=== PATIENT | female | born 1985 | race Caucasian/White ===

== ENCOUNTER → 2016-03-02 | Outpatient (CLI) | payer OTHER ==
[~2016-03-02] MED LIST: ACET50TA PO; MOTR200T40 PO
--- NOTE | 2016-03-02 18:58 | REP ---
OBSTETRIC SONOGRAPHY: HISTORY: growth study. Amniotic fluid assessment. FINDINGS: Scanning through the gravid uterus demonstrates a viable single intrauterine gestation in a cephalic lie. motion is observed and heart rate is recorded at 128 beats per minute. A left lateral placental is seen without evidence of previa. Amniotic fluid is subjectively normal. RAYO is normal at 9.7 cm. The SD ratio in the umbilical cord artery by Doppler is slightly elevated at 3.72 (2.00 to 3.00). The following additional anatomic structures are identified and felt to be sonographically unremarkable: cranium, four chamber heart with left ventricular outflow tract view, diaphragm, left sided stomach, three vessel cord, kidneys, and bladder. BPD 8.6 cm = 34 weeks 5 days Head circumference 30.6 cm = 34 weeks 0 days Abdominal circumference 31.0 cm = 34 weeks 6 days Femur length 7.0 cm = 36 weeks 0 days Humeral length 6.2 cm = 36 weeks 0 days HC/AC ratio normal 0.99. Cephalic index is normal 0.80. Estimated weight is 2592 grams 5 pound 11 ounces 60th percentile for 34 weeks 3 days. IMPRESSION: Viable single intrauterine gestation at 34 weeks 5 days by today's composite sonographic criteria. Expected gestational age estimate based on prior sonography is 34 weeks 3 days ARCHANA by prior sonography 04/10/2016. SD ratio in the umbilical cord artery by Doppler slightly elevated at 3.72. Signed by Pool Willis MD 03/02/2016 07:21 P
== END ==
LOC: M SMT 09:57
PROVIDERS: ATTEND Advanced Practice Midwife
DX: R21 Rash and other nonspecific skin eruption (principal)

== ENCOUNTER → 2016-03-10 | Outpatient (CLI) | payer OTHER ==
[2016-03-10 18:43] LABS: MEAN CORPUSCULAR HEMOGLOBIN 29.3 pg (27.0-33.0); MEAN CORPUSCULAR HGB CONC 33.3 g/dl (32.0-36.5); RED CELL DISTRIBUTION WIDTH 13.9 % (11.5-14.5); WHITE BLOOD COUNT 9.3 K/mm3 (4.0-10.0)
[2016-03-10 19:18] LABS: ALT/SGPT 17 U/L (12-78); AST/SGOT 16 U/L (15-37); BILIRUBIN,TOTAL 0.3 MG/DL (0.2-1.0); CREATININE FOR GFR 0.66 MG/DL (0.55-1.02); GLOMERULAR FILTRATION RATE > 60.0 (>60); URIC ACID 4.5 MG/DL (2.6-6.0)
== END ==
LOC: M SMT 14:39
PROVIDERS: ATTEND Advanced Practice Midwife
DX: O26.613 Liver and biliary tract disorders in pregnancy, third trimester (principal)

== ENCOUNTER 2016-03-23 11:20 | Inpatient (IN) | payer OTHER ==
[~2016-03-23] VITALS: Ht 162.6 cm; Wt 63.0 kg
[2016-03-23] VITALS (29 sets, daily range): BP systolic 108–142; BP diastolic 52–85
[~2016-03-23 11:20] MED LIST changes: -MOTR200T40 PO; +MOTR200T44 PO
[2016-03-23] MEDS ORDERED: LR 1,000 ML IV SCH (11:54)
[2016-03-23] MEDS ORDERED: OXYTOCIN DRIP 30 UNITS in APPROPRIATE DILUENT 1 EA IV SCH ×2 (12:00→18:00)
[2016-03-23] MEDS ORDERED: PRENTAB9 PO (12:22)
--- NOTE | 2016-03-23 12:23 | HPE ---
DATE OF ADMISSION: 03/23/2016 Cielo is a 30-year-old, 2, para 1-0-0-1, at 37-3/7 weeks gestation with an estimated date of confinement (EDC) of 04/10/2016 based on last normal menstrual period and confirmed by first trimester ultrasound. She presents to labor and delivery today for induction of labor per consult with Dr. Zaida Sauceda due to diagnosis of cholestasis at 34 weeks gestation. She does report an occasional contraction. Denies leakage of fluid and the fetus has been active. care was initiated at [facility] in the first trimester. course complicated by a history of gestational hypertension in prior and recent diagnosis of cholestasis. OBSTETRICAL HISTORY: January 2014, at 38-6/7 weeks gestation, she had induction of labor due to gestational hypertension and had a vaginal delivery for a 7 pound 12 ounce female. OBSTETRICAL (OB) LABS: Blood type AB+, antibody screen negative. Pap was normal. Rubella immune. VDRL nonreactive. Urine culture no growth. Hepatitis B surface antigen negative. HIV negative. Hepatitis C negative. Gonorrhea and chlamydia negative. She had second trimester serum screenings. Quad screen was performed and negative result. Gestational diabetic screening 121. Her GBS is negative. On 02/26/2016, after complaint of abdominal itching and rash, liver enzymes and bile acids were performed. AST was elevated at 85, ALT 106. Her bile acids were 21.1. Per consult with Dr. Ronaldo Montano, diagnosis of cholestasis was made and ursodiol was started. Repeat labs on 03/10/2016 showed her AST returned back to normal at 16, ALT 17, LDH 156, and bile acids 15.2. PAST MEDICAL HISTORY: Gestational hypertension, seasonal allergies, abnormal Pap smear, and childhood varicella. SURGERIES: None. Family history of heart disease. SOCIAL HISTORY: The patient is . Her is at bedside and supportive. She is a nonsmoker. Denies alcohol and drug use. Denies any history of any sexually transmitted infections and denies history of abuse physical, sexual and emotional. ALLERGIES: SEASONAL. NO KNOWN DRUG ALLERGIES. CURRENT MEDICATIONS: Include: - ursodiol 300 mg - Protonix 20 - vitamin OBJECTIVE: Temperature 97.4, pulse 98, respirations 18, blood pressure 134/61. heart rate 130 with moderate variability, positive accelerations, no decelerations noted. She has an occasional contraction. Abdomen is gravid, cephalic presentation. Estimated weight 6-1/2 pounds. Sterile vaginal exam: 3 cm dilated, 80% effaced, -2 station. No bloody show. ASSESSMENT: Intrauterine at 37-3/7 weeks gestation, heart rate category 1, cholestasis. PLAN: Admit patient to labor and delivery. Out of bed ad renee. Start clear liquid diet. Start IV Pitocin for labor induction. I did review the risks and benefits to induction of labor with the patient, including increased risk for section, failed induction of intolerance to labor and risks associated with expectant management, worsening status with cholestasis. All the patient and her 's questions have been answered and she does desire to proceed with induction. I do anticipate labor and spontaneous vaginal delivery.
[2016-03-23] MEDS ORDERED: TUMS500C PO (12:24)
[2016-03-23 13:11] LABS: MEAN CORPUSCULAR HEMOGLOBIN 30.1 pg (27.0-33.0); MEAN CORPUSCULAR HGB CONC 33.7 g/dl (32.0-36.5); MEAN CORPUSCULAR VOLUME 89.2 fl (80.0-96.0); RED CELL DISTRIBUTION WIDTH 13.9 % (11.5-14.5); WHITE BLOOD COUNT 6.7 K/mm3 (4.0-10.0)
[2016-03-23] MEDS ORDERED: FENTANYL 2MCG/ML ROPIVACAINE 0.2% NACL 250 ML CADD As Ordered ONE (15:43)
[2016-03-23] MEDS ORDERED: EPIDURAL COMMENT XX SCH (16:45)
[2016-03-23] MEDS ORDERED: REFRIGERATOR IV KEYS XX PRN (16:45)
[2016-03-23] MEDS ORDERED: diphenhydrAMINE INJ 50MG/ML VIAL (J1200) IV PRN (16:45)
[2016-03-23] MEDS ORDERED: NALOXONE INJ 0.4 MG/1 ML VIAL (J2310) IV PRN (16:45)
[2016-03-23] MEDS ORDERED: ONDANSETRON 4MG/2ML VIAL (J2405) IV PRN (16:45)
[2016-03-23] MEDS ORDERED: ePHEDrine SULFATE 25 MG/5 ML(5MG/ML) SYRINGE IV PRN (16:45)
[2016-03-23] MEDS ORDERED: LACTATED RINGER'S 1000 ML IV PRN (16:45)
[2016-03-23] MEDS ORDERED: EPIDURAL/PCA KEYS XX PRN (16:45)
[2016-03-23] MEDS ORDERED: FENTANYL/ROPIVACAINE/NACL CADD 250 ML EPIDURAL SCH (16:45)
[2016-03-23] MEDS ORDERED: MEASLES,MUMPS,RUBELLA VACCINE INJ (MMR-II) (90707) SC SCH (18:00)
[2016-03-23] MEDS ORDERED: RHOGAM 300 MCG (1500 IU) INJ (J2790) IM SCH (18:00)
[2016-03-23] MEDS ORDERED: DIBUCAINE 1% OINTMENT 30GM TOP PRN (18:00)
[2016-03-23] MEDS ORDERED: LIDOCAINE 1% MDV INJ 50 ML VIAL INFIL ONE (18:00)
[2016-03-23] MEDS ORDERED: DOCUSATE SODIUM 100 MG CAP PO PRN (18:00)
[2016-03-23] MEDS ORDERED: METHYLERGONOVINE MALEATE 0.2 MG TAB PO PRN (18:00)
--- NOTE | 2016-03-23 18:18 | DN ---
DATE: 03/23/2016 DELIVERY NOTE: Cielo is a 30-year-old 2, para 2-0-0-2 now, who was admitted to labor and delivery for induction of labor due to cholestasis. Intravenous (IV) Pitocin was started and labor ensued. She did utilize an epidural for her labor coping. She had assisted rupture of membranes for a small amount of clear odorless fluid at 1729, after being fully dilated at 1722. She pushed to a normal spontaneous vaginal delivery of a live female in occiput anterior (OA) position with restitution to right occiput transverse (ROT) position at 17 34, with a right nuchal hand. The shoulders delivered with gentle guidance and the corpus immediately followed. The was placed on the maternal abdomen crying and active. Her mouth and nares were bulb suctioned. The cord was clamped after pulsations ceased and cut by the father of the baby. A spontaneous expulsion with an intact placenta and a three-vessel cord by Mendoza mechanism was at 1738. Uterine hemostasis achieved with IV Pitocin rapid infusion and uterine fundal massage. Estimated blood loss 200 mL. Perineum and vagina were inspected and noted to have a small perineal first-degree laceration. The laceration was infiltrated with lidocaine 1% and repaired with 3-0 Rapide in the usual fashion. The female weight is pending and scores are nine and nine. Mom plans to breastfeed her daughter and the family have named their daughter Ketty. At the close of delivery, lap counts, instrument counts and needle counts were correct and verified.
[2016-03-23] MEDS: IBUPROFEN 800 MG TAB PO PRN (20:22)
[2016-03-24] MEDS ORDERED: LIDOCAINE 1% MDV INJ 50 ML VIAL As Ordered ONE (06:15)
[2016-03-24] MEDS: ACETAMINOPHEN 500 MG TAB PO PRN ×2 (06:31→18:46)
[2016-03-24 06:33] VITALS: BP 116/53
[2016-03-24] MEDS: PRENATAL VITAMIN TAB PO SCH (08:16)
[2016-03-24 10:00] VITALS: BP 110/55
[2016-03-24 14:00] VITALS: BP 134/61
[2016-03-24 18:00] VITALS: BP 110/55
[2016-03-24] MEDS: IBUPROFEN 800 MG TAB PO PRN (21:49)
[2016-03-25 05:57] VITALS: BP 100/51
[2016-03-25] MEDS ORDERED: IBUP-1114 PO (07:19)
[2016-03-25] MEDS ORDERED: ACET50TA PO (07:19)
[2016-03-25] MEDS: PRENATAL VITAMIN TAB PO SCH (09:05)
== END 2016-03-25 10:00 | disposition home or self-care (01) | DRG 560 ==
LOC: M LDI 11:20 → M OBS 19:27
PROVIDERS: ADMIT Advanced Practice Midwife; ATTEND Advanced Practice Midwife
PROC: 10E0XZZ Delivery of Products of Conception, External Approach (ICD-10-PCS; principal; 2016-03-23)
PROC: 10907ZC Drainage of Amniotic Fluid, Therapeutic from Products of Conception, Via Natural or Artificial Opening (ICD-10-PCS; 2016-03-23)
PROC: 0HQ9XZZ Repair Perineum Skin, External Approach (ICD-10-PCS; 2016-03-23)
PROC: 3E033VJ Introduction of Other Hormone into Peripheral Vein, Percutaneous Approach (ICD-10-PCS; 2016-03-23)
DX: O26.62 Liver and biliary tract disorders in childbirth (principal); K83.1 Obstruction of bile duct; Z3A.37 37 weeks gestation of pregnancy; O70.0 First degree perineal laceration during delivery; Z37.0 Single live birth

== ENCOUNTER → 2020-04-23 | Outpatient (REF) | payer OTHER ==
[~2020-04-23] MED LIST changes: -ACET50TA PO; +IBUP-1114 PO; +MAPA500T2 PO; +PRENTAB9 PO; +TUMS500C PO
[2020-04-23 14:06] LABS: HEMATOCRIT 37.3 % (36.0-47.0); HEMOGLOBIN 12.6 g/dl (12.0-15.5); MEAN CORPUSCULAR HEMOGLOBIN 31.4 pg (27.0-33.0); MEAN CORPUSCULAR HGB CONC 33.8 g/dl (32.0-36.5); PLATELET COUNT, AUTOMATED 250 10^3/uL (150-450); RED BLOOD COUNT 4.01 10^6/uL (4.00-5.40); WHITE BLOOD COUNT 7.9 10^3/uL (4.0-10.0)
[2020-04-23 14:33] LABS: ALT/SGPT 17 U/L (12-78); BILIRUBIN,TOTAL 0.3 MG/DL (0.2-1.0); CREATININE FOR GFR 0.56 MG/DL (0.55-1.30); GLOMERULAR FILTRATION RATE > 60.0 (>60); LDH LACTATE DEHYDROGENASE 120 U/L (84-246); URIC ACID 3.6 MG/DL (2.6-6.0)
[2020-04-23 14:33] LABS: CREATININE,RANDOM URINE 96.3 MG/DL; TOTAL PROTEIN,RANDOM URINE 5.2 MG/DL (0.0-12.0)
[2020-04-23 15:23] LABS: HEPATITIS C VIRUS ABY INDEX < 0.0 INDEX (<0.8); HIV 1&2 SCREEN CENTAUR NEGATIVE (NEGATIVE)
== END ==
LOC: M PLALAB 10:37
PROVIDERS: ATTEND Advanced Practice Midwife
DX: Z34.91 Encounter for supervision of normal pregnancy, unspecified, first trimester (principal); Z3A.00 Weeks of gestation of pregnancy not specified

== ENCOUNTER → 2020-05-20 | Outpatient (CLI) | payer OTHER | LOC: M PLALAB 10:37 | PROVIDERS: ATTEND Advanced Practice Midwife | DX: Z13.79 Encounter for other screening for genetic and chromosomal anomalies (principal) ==

== ENCOUNTER → 2020-06-10 | Outpatient (CLI) | payer OTHER ==
--- NOTE | 2020-06-10 10:30 | REP ---
INDICATION: ANATOMY. COMPARISON: None. TECHNIQUE: Real-time sonographic evaluation of the gravid uterus performed. FINDINGS: Estimated gestational age is21 weeks 0 days, EDC 10/21/2020. Today's measurements indicate appropriate growth. Presentation: Transverse Placenta is posterior, grade 1, without evidence of placenta previa. heart rate is recorded at 141 beats per minute. Amniotic fluid is subjectively normal. Closed cervical length is measured at 4.1 cm. Biometry chart: BPD: 49 mm, 20 weeks 6 days, 46th percentile. HC: 188 mm, 21 weeks 1 days, 54th percentile AC: 164 mm, 21 weeks 3 days, 60th percentile Femur length: 35 mm, 20 weeks 6 days, is 47th percentile HC to AC ratio: 1.15, normal range 1.05-1.24. Estimated weight: 404g, 54th percentile. anatomy: Cranium: Grossly normal Lateral Ventricles/Choroid Plexus: Grossly normal Posterior Fossa/Cerebellum: Grossly normal Nose/lips/profile: Grossly normal Four chamber heart: Grossly normal Right ventricular outflow tract: Grossly normal Left ventricular outflow tract: Grossly normal Left-sided stomach: Grossly normal Kidneys: Grossly normal Bladder: Grossly normal Cord Insertion: Grossly normal 3 vessel cord: Grossly normal Spine: Grossly normal IMPRESSION: Viable single intrauterine gestation as above. <Electronically signed by Carlos Galicia > 06/10/20 1024
== END ==
LOC: M WHC 09:27
PROVIDERS: ATTEND Advanced Practice Midwife
DX: Z36.3 Encounter for antenatal screening for malformations (principal); Z3A.21 21 weeks gestation of pregnancy

== ENCOUNTER → 2020-07-15 | Outpatient (REF) | payer OTHER ==
[2020-07-15 13:36] LABS: HEMATOCRIT 35.4 % (36.0-47.0); HEMOGLOBIN 11.5 g/dl (12.0-15.5); MEAN CORPUSCULAR HEMOGLOBIN 31.8 pg (27.0-33.0); MEAN CORPUSCULAR HGB CONC 32.5 g/dl (32.0-36.5); MEAN CORPUSCULAR VOLUME 97.8 fl (80.0-96.0); PLATELET COUNT, AUTOMATED 221 10^3/uL (150-450); RED BLOOD COUNT 3.62 10^6/uL (4.00-5.40)
== END ==
LOC: M PLALAB 09:46
PROVIDERS: ATTEND Advanced Practice Midwife
DX: Z36.89 Encounter for other specified antenatal screening (principal)

== ENCOUNTER → 2020-09-22 | Outpatient (CLI) | payer OTHER ==
[2020-09-22 16:10] LABS: HEMATOCRIT 33.1 % (36.0-47.0); HEMOGLOBIN 10.7 g/dl (12.0-15.5); MEAN CORPUSCULAR HEMOGLOBIN 30.3 pg (27.0-33.0); MEAN CORPUSCULAR HGB CONC 32.3 g/dl (32.0-36.5); MEAN CORPUSCULAR VOLUME 93.8 fl (80.0-96.0); PLATELET COUNT, AUTOMATED 207 10^3/uL (150-450); RED BLOOD COUNT 3.53 10^6/uL (4.00-5.40); WHITE BLOOD COUNT 9.3 10^3/uL (4.0-10.0)
[2020-09-22 16:39] LABS: BILIRUBIN,DIRECT 0.1 MG/DL (0.0-0.2); BILIRUBIN,TOTAL 0.3 MG/DL (0.2-1.0); TOTAL PROTEIN 6.4 GM/DL (6.4-8.2)
== END ==
LOC: M PLALAB 11:35
PROVIDERS: ATTEND Advanced Practice Midwife
DX: Z34.93 Encounter for supervision of normal pregnancy, unspecified, third trimester (principal); L29.9 Pruritus, unspecified; Z3A.00 Weeks of gestation of pregnancy not specified

== ENCOUNTER 2020-10-18 01:09 | Inpatient (IN) | payer OTHER ==
[~2020-10-18] VITALS: Ht 162.6 cm; Wt 73.8 kg
[2020-10-18] VITALS (14 sets, daily range): BP systolic 107–136; BP diastolic 49–69
[2020-10-18] MEDS ORDERED: LACTATED RINGER'S 1000 ML IV STA (01:48)
[2020-10-18] MEDS ORDERED: METHYLERGONOVINE MALEATE 0.2 MG/ML VIAL (J2210) IM PRN (01:50)
[2020-10-18] MEDS ORDERED: OXYTOCIN DRIP 30 UNITS in IV 1 EA IV PRN (01:50)
[2020-10-18] MEDS ORDERED: LR 1,000 ML IV SCH (01:50)
[2020-10-18] MEDS ORDERED: LIDOCAINE 1% MDV 20ML VIAL INFIL PRN (01:50)
--- NOTE | 2020-10-18 02:08 | HPEPDOC ---
Obstetrical History & Physical General Date of Admission Oct 18, 2020 at 01:47 History of Present Illness Chief Complaint: Contractions, term, LOF, term Age: 34 : 3 Term: 2 Pre-term: 0 Abortions: 0 Livin Care Care: Good Care Dating Final EDC by: LMP EGA at Admission: 39 (+4) Antepartum Course Pre- weight (lbs.): 121 Admission Weight (lbs.): 160 Past Medical History Past Obstetrical History #1: Past Obstetrical History: Primgravida (2014) Type of Delivery: Spontaneous Vaginal Del. Sex of : Female (7#12) Complications: Yes (GHTN end of ) Past Obstetrical History #2: Past Obstetrical History: Multigravida (2017) Type of Delivery: Spontaneous Vaginal Del. 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 Past Medical History Surgical History: Denies/None Family History Significant Family History: Diabetes Social History Marital Status: Family situation: Spouse/partner home Psychosocial History: No pertinent psych hx * Smoker: non-smoker Alcohol: Denies Drugs: denies Imunizations Tdap status: current Allergies Coded Allergies: No Known Drug Allergies (Verified Allergy, Unknown, 10/18/20) Medications Scheduled No.137/Iron/Folic Acd ( Vitamin Tablet) 1 Tab Tab, 1 TAB PO DAILY Scheduled PRN Acetaminophen (Mapap) 500 Mg Tab, 1,000 MG PO Q6HP PRN for MILD PAIN (PS 1-4) Calcium Carbonate (Tums) 500 Mg Chw, 500 MG PO Q2HP PRN for HEARTBURN Ibuprofen (Ibuprofen) 400 Mg Tab, 800 MG PO Q8HP PRN for MODERATE PAIN (PS 5-7) Physical Examination Physical Examination GENERAL: Alert and oriented times three. BREAST: . ABDOMEN: Gravid and non-tender to touch. FETUS: Is vertex (VTX) by sterile vaginal examination (SVE), fetus is vertex (VTX) by Randall. EFW 8# HEART RATE: Regular rate and rhythm. LUNGS: Clear to auscultation (CTA). EXTREMITIES: No edema. No clonus. Deep tendon reflexes (DTRs) + 2 Laboratory Data 24H LABS Laboratory Tests 2 10/18/20 01:53: Serology Scanned Report Hepatitis B Testing Pertinent Laboratoy Data Blood Type: AB+ RBC Antibody Screen: Negative HIV: Negative Hepatitis B: Negative Hepatitis C: Negative Rapid Plasma Reagin: Nonreactive Rubella: Immune Chlamydia/Gonorrhea: Negative Group B Streptococcus: Negative Glucose Tolerance Test: 101 Diag/Inter Therapy Panorama low risk male Anatomy Ultrasound Ultrasound Date: Jun 10, 2020 Placenta Location: Posterior Normal Anatomy: Yes Placenta Previa: No Estimated Weight (grams): 404 (54%) Steroid Therapy Steroid Therapy: No Vaginal Examination Dilation: 3 cm Effacement: 100% Station: -1 Cervical Consistency: Soft Cervical Position: Middle Presentation: Cephalic presentation Assessment Heart Rate (FHR): 145 Variability: Moderate Accelerations: Positive Decelerations: None Tocometer Contractions: Yes Frequency: irregular, every 2-5 min. Duration: less than 60 seconds Strength: palpated as moderate Assessment/Plan Assessment Cielo is a 34-year-old (G) 3 para (P)2-0-0-2 at 39+4 weeks by first trimester ultrasound. Presents to Labor and Delivery (L&D) with reports of spontaneous loss of clear fluid 2300 followed by onset UC. Reports good movement. 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 Diet: clear liquids. Group B Streptococcus (GBS) negative. Labs and intravenous (IV) per unit protocol. Counseled on Pitocin and induction of labor (IOL). Lactated Ringers (LR): Bolus 500 mL, then at 125 mL/hr. Plans epidural Anticipate normal spontaneous delivery (). C-S as appropriate. Denise Henderson CNM Oct 18, 2020 02:08
[2020-10-18 02:09] LABS: HEMATOCRIT 30.7 % (36.0-47.0); HEMOGLOBIN 10.4 g/dl (12.0-15.5); MEAN CORPUSCULAR HEMOGLOBIN 30.1 pg (27.0-33.0); MEAN CORPUSCULAR HGB CONC 33.9 g/dl (32.0-36.5); MEAN CORPUSCULAR VOLUME 88.7 fl (80.0-96.0); PLATELET COUNT, AUTOMATED 213 10^3/uL (150-450); RED BLOOD COUNT 3.46 10^6/uL (4.00-5.40); WHITE BLOOD COUNT 10.2 10^3/uL (4.0-10.0)
[2020-10-18] MEDS ORDERED: FENTANYL 2MCG/ML ROPIVACAINE 0.2% IN 0.9% NACL 100ML IVBAG As Ordered ONE (03:00)
[2020-10-18] MEDS ORDERED: OXYTOCIN 30 UNITS IN 0.9% NaCl 500ML IV BAG (J2590) As Ordered ONE (03:38)
[2020-10-18] MEDS ORDERED: FENTANYL/ROPIVACAINE/NACL BAG 100 ML EPIDURAL SCH (03:50)
[2020-10-18] MEDS ORDERED: ONDANSETRON 4MG/2ML VIAL IV PRN (03:50)
[2020-10-18] MEDS ORDERED: REFRIGERATOR IV KEYS XX PRN (03:50)
[2020-10-18] MEDS ORDERED: NALOXONE INJ 0.4MG/1ML VIAL (J2310 PER 1MG) IV PRN (03:50)
[2020-10-18] MEDS ORDERED: EPIDURAL COMMENT XX SCH (03:50)
[2020-10-18] MEDS ORDERED: EPIDURAL/PCA KEYS XX PRN (03:50)
[2020-10-18] MEDS ORDERED: LACTATED RINGER'S 1000 ML IV PRN (03:50)
[2020-10-18] MEDS ORDERED: diphenhydrAMINE 50MG/ML VIAL (J1200) IV PRN (03:50)
[2020-10-18] MEDS ORDERED: ePHEDrine SULFATE 25 MG/5 ML(5MG/ML) SYRINGE IV PRN (03:50)
[2020-10-18] MEDS ORDERED: MOM 30ML SUSPENSION UDC PO PRN (04:35)
[2020-10-18] MEDS ORDERED: DOCUSATE SODIUM 100MG CAPSULE PO PRN (04:35)
[2020-10-18] MEDS ORDERED: MEASLES,MUMPS,RUBELLA VACCINE INJ (MMR-II) (90707) SC SCH (04:35)
[2020-10-18] MEDS ORDERED: ACETAMINOPHEN TAB 650MG DOSE (2X325MG) PO PRN (04:35)
[2020-10-18] MEDS ORDERED: METHYLERGONOVINE MALEATE 0.2 MG TAB PO PRN (04:35)
[2020-10-18] MEDS ORDERED: OXYTOCIN DRIP 30 UNITS in IV 1 EA IV SCH (04:35)
[2020-10-18] MEDS ORDERED: DIBUCAINE 1% OINTMENT 30GM TOP PRN (04:35)
[2020-10-18] MEDS ORDERED: RHOGAM 300 MCG (1500 IU) INJ (J2790) IM SCH (04:35)
[2020-10-18] MEDS ORDERED: IBUPROFEN 600MG TAB PO PRN (04:35)
--- NOTE | 2020-10-18 04:44 | DNPDOC ---
[facility] [place] DATE OF DELIVERY: 10/18/2020 PREDELIVERY DIAGNOSIS: 39+4/7 weeks' gestation and labor. POST DELIVERY DIAGNOSIS: Delivered. PROCEDURE: Spontaneous vaginal delivery PROVIDER: Denise Henderson CNM ANESTHESIA: Epidural ESTIMATED BLOOD LOSS: 200 mL. FINDINGS: 7 pound 15 ounce, 3600gm male infant, Score 8/9, no nuchal cord; true knot in cord. DELIVERY SUMMARY: Patient is a 34-year-old 3 now para 3-0-0-3 who was admitted to labor and delivery for active labor. She progressed under her own ospina, utilizing an epidural for labor coping making rapid progress. Fully dilated 0336. Pushed with encouragement. Head delivered NASREEN 0405, restituted to ROT. Slow maternal pushing efforts. Viable male delivered 0407, shoulders delivered with ease. Spontaneous respirations, transitioned on maternal abdomen with lusty cry. Cord gas obtained. Cord doubly clamped and cut once pulsations ceased. Apgars 8/9. Placenta junior, intact with 3v cord and true knot in cord @ 0417. Fundus firmed with massage and IV bolus premixed pitocin 30mg, bleeding controlled. 1st degree perineal laceration repaired with 3-0 vicryl rapide. Sponge, sharp and instrument count correct. Denise Henderson CNM Oct 18, 2020 04:44
[2020-10-18] MEDS: PRENATAL VITAMINS CHEWABLE TABLET PO SCH (07:31)
[2020-10-18] MEDS: IBUPROFEN 800 MG TAB PO PRN ×2 (07:31→16:41)
[2020-10-18] MEDS: ACETAMINOPHEN 500 MG TAB PO PRN ×2 (11:26→19:12)
[2020-10-19] MEDS: IBUPROFEN 800 MG TAB PO PRN (03:40)
[2020-10-19 05:44] VITALS: BP 124/60
[2020-10-19] MEDS: ACETAMINOPHEN 500 MG TAB PO PRN (06:55)
[2020-10-19] MEDS: PRENATAL VITAMINS CHEWABLE TABLET PO SCH (08:21)
--- NOTE | 2020-10-19 11:27 | IPNPDOC ---
Progress Note Date of Service: Oct 19, 2020 Day#: 1 Progress Note SUBJECT: Status post . She has been ambulating, voiding spontaneously with out issue and tolerating regular diet. Lochia decreasing/minimal. Pain is well- controlled. Denies headache, visual changes, right upper quadrant pain, shortness breath or chest pain. OBJECTIVE: VITAL SIGNS: Within normal limits, afebrile. Alert and oriented times three. Abdomen: Fundus firm at U-2. Soft, NTTP. ASSESSMENT: Status post uncomplicated spontaneous vaginal delivery. Vitals within normal limits, afebrile, hemodynamically stable with no evidence of infection. PLAN: Discharge to home today. Tylenol and Motrin for pain. Routine instructions/precautions reviewed. Routine PP visit in 6 weeks in clinic. VS, I&O, 24H, Fishbone Vital Signs/I&O Vital Signs Date Time Temp Pulse Resp B/P (MAP) Pulse Ox O2 Delivery O2 Flow Rate FiO2 10/19/20 05:44 98.4 72 16 124/60 (81) 10/18/20 18:04 100 Room Air BREEZY CEE DO Oct 19, 2020 11:27
[2020-10-19 17:52] VITALS: BP 132/68
== END 2020-10-19 20:20 | disposition home or self-care (01) | DRG 807 ==
LOC: M LDO 01:09 → M LDI 01:47 → M OBS 15:48
PROVIDERS: ADMIT Advanced Practice Midwife; ATTEND Advanced Practice Midwife
PROC: 10E0XZZ Delivery of Products of Conception, External Approach (ICD-10-PCS; principal; 2020-10-18)
PROC: 0HQ9XZZ Repair Perineum Skin, External Approach (ICD-10-PCS; 2020-10-18)
DX: O70.0 First degree perineal laceration during delivery (principal); Z37.0 Single live birth; Z3A.39 39 weeks gestation of pregnancy

== ENCOUNTER → 2021-06-02 | Outpatient (REF) | payer OTHER | LOC: M SFHCDERM 14:24 | PROVIDERS: ATTEND Dermatology | DX: L90.5 Scar conditions and fibrosis of skin (principal) ==

== ENCOUNTER → 2021-11-26 | Outpatient (REF) | payer OTHER | LOC: M PLALAB 13:56 | PROVIDERS: ATTEND Nurse Practitioner Family | DX: Z12.4 Encounter for screening for malignant neoplasm of cervix (principal) | CPT/HCPCS: 87624; G0123 ==

== ENCOUNTER → 2022-06-18 | Outpatient (REF) | payer OTHER ==
[2022-06-18 18:10] LABS: BASO % 0.6 % (0.0-1.0); EOS # 0.1 10^3/uL (0.0-0.5); EOS % 1.3 % (0.0-3.0); HEMATOCRIT 41.5 % (36.0-47.0); LYMPH # 2.1 10^3/uL (1.5-5.0); LYMPH % 43.6 % (24.0-44.0); MEAN CORPUSCULAR HEMOGLOBIN 32.2 pg (27.0-33.0); MEAN CORPUSCULAR HGB CONC 33.7 g/dl (32.0-36.5); MEAN CORPUSCULAR VOLUME 95.4 fl (80.0-96.0); MONO # 0.4 10^3/uL (0.0-0.8); MONO % 7.3 % (2.0-8.0); NEUTROPHILS # 2.3 10^3/uL (1.5-8.5); PLATELET COUNT, AUTOMATED 250 10^3/uL (150-450); RED BLOOD COUNT 4.35 10^6/uL (4.00-5.40); WHITE BLOOD COUNT 4.8 10^3/uL (4.0-10.0)
[2022-06-18 18:14] LABS: ALBUMIN 4.4 G/DL (3.2-5.2); ALKALINE PHOSPHATASE 45 U/L (46-116); ALT/SGPT 20 U/L (7.0-40); AST/SGOT 19 U/L (<34); BILIRUBIN,TOTAL 0.8 MG/DL (0.3-1.2); BLOOD UREA NITROGEN 11 MG/DL (9-23); CALCIUM LEVEL 8.8 MG/DL (8.5-10.1); CARBON DIOXIDE LEVEL 28 MMOL/L (20-31); CHLORIDE LEVEL 103 MMOL/L (98-107); CREATININE FOR GFR 0.69 MG/DL (0.55-1.30); GLOMERULAR FILTRATION RATE > 60.0 (>60); GLUCOSE, FASTING 89 MG/DL (60-100); POTASSIUM SERUM 4.3 MMOL/L (3.5-5.1); SODIUM LEVEL 138 MMOL/L (136-145); TOTAL PROTEIN 6.9 G/DL (5.7-8.2)
== END ==
LOC: M SFHCCLAY 11:36
PROVIDERS: ATTEND Physician Assistant
DX: R10.12 Left upper quadrant pain (principal)

== ENCOUNTER → 2023-03-03 | Outpatient (REF) | payer OTHER | LOC: M PLALAB 15:31 | PROVIDERS: ATTEND Nurse Practitioner Family | DX: Z12.4 Encounter for screening for malignant neoplasm of cervix (principal) | CPT/HCPCS: 87624; G0123 ==